=== PATIENT | female | born 1955 | race Caucasian/White ===

== ENCOUNTER 2018-03-26 06:18 | Day surgery (SDC) ==
[2018-03-26] MEDS: BETADINE OPTH PREP OP PRN ×2 (06:30→07:17)
[2018-03-26] MEDS: TETRACAINE 0.5% UNIT-DOSE OP PRN ×2 (06:30→07:17)
[2018-03-26] MEDS: CYCLOGYL 2% OPTH OP PRN ×3 (06:31→06:41)
[2018-03-26 07:29] VITALS: TEMP 96.2
[2018-03-26] MEDS ORDERED: ZOFRAN 4 MG/2 ML IVP ONE (07:30)
[2018-03-26] MEDS ORDERED: LIDOCAINE 1% 20 ML MDV ID STA (07:30)
[2018-03-26] MEDS ORDERED: BSS WITH EPINEPHRINE OP ONE (07:30)
[2018-03-26] MEDS ORDERED: BRIMONIDINE TARTRATE 0.2% OPTH SOL OP PRN (07:30)
[2018-03-26] MEDS ORDERED: AK-DILATE 10% OPTH SOL OP PRN (07:30)
[2018-03-26] MEDS ORDERED: LIDOCAINE 1%/PHENYLEPHRINE 1.5% BSS (SURGERY) INTRAOCULA ONE (07:30)
[2018-03-26] MEDS ORDERED: DEX-MOXI-KETOR OPTH INJ 1/0.5/0.4 MG/ML IO ONE (07:30)
[2018-03-26] MEDS ORDERED: VERSED ONE (07:36)
[2018-03-26] MEDS ORDERED: DIPRIVAN 20 ML VIAL IVP ONE (07:36)
[2018-03-26] MEDS ORDERED: ZOFRAN 4 MG/2 ML ONE (07:36)
[2018-03-26 15:13] VITALS: BP 121/67
== END 2018-03-26 09:00 | disposition home or self-care (01) ==
LOC: SURG 06:18
PROVIDERS: ATTEND Ophthalmology
DX: H25.11 Age-related nuclear cataract, right eye (principal)

== ENCOUNTER 2018-04-09 06:19 | Day surgery (SDC) ==
[2018-04-09] MEDS: BETADINE OPTH PREP OP PRN ×2 (06:30→07:30)
[2018-04-09] MEDS: TETRACAINE 0.5% UNIT-DOSE OP PRN ×3 (06:30→07:47)
[2018-04-09] MEDS: CYCLOGYL 2% OPTH OP PRN ×3 (06:31→06:41)
[2018-04-09] MEDS ORDERED: LIDOCAINE 1% 20 ML MDV ID STA (06:42)
[2018-04-09] MEDS ORDERED: BSS WITH EPINEPHRINE OP ONE (06:42)
[2018-04-09] MEDS ORDERED: BRIMONIDINE TARTRATE 0.2% OPTH SOL OP PRN (06:42)
[2018-04-09] MEDS ORDERED: DEX-MOXI-KETOR OPTH INJ 1/0.5/0.4 MG/ML IO ONE (06:42)
[2018-04-09] MEDS ORDERED: ZOFRAN 4 MG/2 ML IVP ONE (06:42)
[2018-04-09 06:46] VITALS: TEMP 97.5
[2018-04-09] MEDS ORDERED: ZOFRAN 4 MG/2 ML ONE (07:42)
[2018-04-09] MEDS ORDERED: DIPRIVAN 20 ML VIAL IVP ONE (07:42)
[2018-04-09] MEDS ORDERED: VERSED ONE (07:42)
[2018-04-09] MEDS: LIDOCAINE 1%/PHENYLEPHRINE 1.5% BSS (SURGERY) INTRAOCULA ONE ×2 (07:47→07:48)
[2018-04-09 16:09] VITALS: BP 128/56
== END 2018-04-09 08:35 | disposition home or self-care (01) ==
LOC: SURG 06:19
PROVIDERS: ATTEND Ophthalmology
DX: H25.12 Age-related nuclear cataract, left eye (principal)

== ENCOUNTER 2018-08-16 10:00 | Outpatient (RCR) ==
--- NOTE | 2018-08-01 13:42 | RS.OPPTEV2 ---
Date of Note: 07/31/18 Visit #: 1 Number of visits approved by Insurance: NA Date of Evaluation: 07/31/18 Payer Source: Insurance Surgery Performed?: No Treatment Diagnosis: Low back pain History of Condition/Mechanism of Injury:: Risa reports low back pain that started approximately March of 2018. States she has had no injury that she is aware of. Pain has progressively gotten worse. Prior Level of Function.....Patient was independent with: ADL's, Self Care, Work /Vocation, Caregiving, Ambulation/Mobility, Community Integration/Access Functional Limitations: Sleep, Self Care, ADL's, Reaching, Pushing, Pulling, Lifting, Carrying, Sitting, Standing, Bending, Squatting, Ambulation, Community Access/Integration Current Subjective/complaints:: Risa reports progressive low back pain. States the pain is across the low back at the waist line. Reports she has recently noticed that she is favoring her left side when walking. States her sleep has been disturbed lately, due to back pain. She reports her pain level depends on her activity. States getting out of her car is difficult. Reports increased difficulty with ADL's following prolonged standing or activities. States she has not been able to lift anything heavy since she had surgery on her arms, do to her technician automatic strength being weak. Medical History Surgical History Comments:: right foot surgery, bilateral ulnar nerve relocation surgery Smoking Status: Current some day smoker Diagnostic Testing/Imaging:: MRI of the lumbar spine without contrast on 2018: L3-4: small disc bulge and small right sided annular tear. Minimal neural foraminal stenosis. No spinal canal stenosis. L4-5 Mild facet hypertrophy and small disc bulge. Mild to moderate left and moderate right neural foraminal stenosis. L5-S1 Facet hypertrophy and small disc bulge. Moderate neural foraminal stenosis, bilaterally. 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 Hx Home Medications: Lyrica, Spironolactone, Just began an anti-inflammatory Patient's Goals: Her goal is to get relief of low back pain. Pain Assessment - Pain Description Pain Location: low back Pain Description: Sharp, Aching Current Pain Intensity: 3/10 Worst Pain Intensity: 9/10 Functional Outcome Measure Oswestry LBP: 52 - G Codes & Severity Modifier G Codes & Modifier: NA Source of G Code score: NA Observation - Observation Posture: Forward Head, Rounded Shoulders, Decreased Lumbar Lordosis Gait - Gait Pattern Gait Comments: Patient ambulates without an assistive device and no loss of balance. She demonstrates decreased stance on the right LE, with slight forward flexion at the hips/lumbar region. - ROM Lumbar Flexion: Hand reach to patellae Sidebending to Left: Reach to Mid-thigh Sidebending to Right: Reach to Mid-thigh Comments: Lumbar spine demonstrates hypomobility with lumbar flexion. Sidebend to the left causes increased discomfort on the right low back. - Strength Trunk Lateral Flexion: 4- Good- Trunk Rotation: 4- Good- Comments: Right hip flexion 4+/5, all else 4/5. Left hip flexion 4/5, IR and ER 4-/5. Bilateral quads and HS 4+/5. ankles 5/5. - Special Tests SLR Test: Negative Left, Negative Right Seated Dural Stretch Test: Negative Left, Negative Right SI Joint Compression: Negative Palpation Comments:: Patient reports tenderness with Central PA's to the lower lumbar spine at L4-Sacrum. Additional Comments: Additional Comments: SLR in supine: right 45-50 degrees, left 35 degrees. Interventions - Exercise/Activities/Manual Therapy Exercises/Activities: Patient instructed in HS stretch for home. Reviewed patient's MRI and used the spine model to explain which levels are involved. Discussed body mechanics and recommended she avoid lifting and twisting at the low back. Recommended she get a small step stool to use with standing activities to reduce stress on the low back. Total minutes of Exercise: 22 mins Manual Therapy: NA HOME EXERCISE PROGRAM: HS stretch - Charges Timed Code Treatment Minutes: 22 mins Total Treatment Time: 75 mins Procedures billed for this date of service:: EVAL Medium, Ex EVALUATION COMPLEXITY LEVEL EVALUATION COMPLEXITY LEVEL: HISTORY: Medium (Arthritis, 3 C sections, Hysterectomy), EXAM OF BODY SYSTEMS: Medium (ROM, strength, pain, gait), CLINICAL PRESENTATION: Medium (75 mins ), CLINICAL DECISION MAKING: Medium Assessment Assessment: Mrs. Mayer presents to therapy with a diagnosis of Low back pain. Her MRI reveals foraminal stenosis at L3-S1. She demonstrates hypomobility in the lumbar spine and an imbalance of HS length in the LE's. She also exhibits potential for strengthening in the trunk and hips. She exhibits good potential to benefit from stretching to balance HS flexibility and improve mobility of the lumbar spine. She will also benefit from hip and trunk/core strengthening to reduce stress on the low back and improve her tolerance for activity. Patient Education: Education of diagnosis, Body/Joint mechanics, Home Exercise Program, Activity Modification, Education of Plan of Care Rehab Potential: Good Short Term Goals Goal #1: Pt independent and compliant with HEP. Goal to be met by: 08/15/18 Goal #2: Left SLR to 45 degrees. Goal to be met by: 08/15/18 Goal #3: Trunk strength 4/5. Goal to be met by: 08/15/18 Custodial Goals Goal #1: Pt knows HEP and to continue ex's to maintain functional level at D/C. Goal to be met by: 09/15/18 Goal #2: Score on Oswestry improved to 30. Goal to be met by: 09/15/18 Goal #3: Pt to sleep without interruption from low back pain. Goal to be met by: 09/15/18 Goal #4: Pt able to perform all selfcare and ADL's w/ minimal LBP. Goal to be met by: 09/15/18 Plan - Treatment to be Provided Procedures: Therapeutic Exercises, Therapeutic Activity, Manual Therapy, Patient Education Modalities: Electrical Stimulation, Ultrasound/Phonophoresis, Cryotherapy, Hot Packs - Treatment Plan Frequency: 2 X week Duration: 6 weeks Dates of Custodial Goals: 09/15/18 Expiration date of current Insurance Approval:: NA - Treatment Code (1) Low back pain Code(s): M54.5 - LOW BACK PAIN Qualifiers: Chronicity: unspecified Back pain laterality: unspecified Sciatica presence: unspecified whether sciatica present Qualified Code(s): M54.5 - Low back pain
--- NOTE | 2018-08-02 13:41 | RS.OPPTDN ---
Subjective Date of Note: 08/02/18 Visit #: 2 Number of visits approved by Insurance: NA Date of Evaluation: 07/31/18 Payer Source: Insurance Treatment Diagnosis: Low back pain Current Subjective/complaints:: Patient reports she is performing HS stretch at home as instructed. Interventions - Exercise/Activities/Manual Therapy Exercises/Activities: Patient received stretching to bilateral LE into SKTC, Piriformis, and HS stretch. Also stretched into bilateral trunk rotation. Instructed patient in using a towel or sheet behind the knee to length her reach , with the HS stretch. Also instructed in isometric hip flexion, to add to HEP. She demonstrated for me that she is sitting and crossing one leg over the other and extending her spine. She states this seems to help. She was advised that it is fine to do and she could also replicate that position, but pull the crossed leg towards her chest in supine to stretch her Piriformis. Total minutes of Exercise: X36 mins Manual Therapy: NA HOME EXERCISE PROGRAM: HS stretch and hip flexion isometrics - Charges Timed Code Treatment Minutes: 36 mins Total Treatment Time: 42 mins Procedures billed for this date of service:: EX2 Assessment: Patient tolerates stretch to low back and LE's without reports of increased pain. She will benefit from stretching and trunk strengthening to get relief of back pain. Patient Education: Education of diagnosis, Body/Joint mechanics, Home Exercise Program Patient demonstrates compliance with HEP?: Yes Short Term Goals Goal #1: Pt independent and compliant with HEP. Goal to be met by: 08/15/18 Progress towards Goal:: Progressing Goal #2: Left SLR to 45 degrees. Goal to be met by: 08/15/18 Goal #3: Trunk strength 4/5. Goal to be met by: 08/15/18 Cnc Lathe Machinist Goals Goal #1: Pt knows HEP and to continue ex's to maintain functional level at D/C. Goal to be met by: 09/15/18 Goal #2: Score on Oswestry improved to 30. Goal to be met by: 09/15/18 Goal #3: Pt to sleep without interruption from low back pain. Goal to be met by: 09/15/18 Goal #4: Pt able to perform all selfcare and ADL's w/ minimal LBP. Goal to be met by: 09/15/18 Plan Dates of Mcfp Goals: 09/15/18 Expiration date of current Insurance Approval:: NA PLAN: Progrees stretching and stability exercises.
--- NOTE | 2018-08-06 12:09 | RS.CXNS ---
Date of scheduled appointment: 08/06/18 Type: No Show
--- NOTE | 2018-08-09 12:03 | RS.OPPTDN ---
Subjective Date of Note: 08/09/18 Visit #: 3 Number of visits approved by Insurance: NA Date of Evaluation: 07/31/18 Payer Source: Insurance Treatment Diagnosis: Low back pain Current Subjective/complaints:: Reports she is performing her stretches consistently at home. States her even does them with her. States she feels like the stretches make her more flexible and less anxious about her movement. Interventions - Exercise/Activities/Manual Therapy Exercises/Activities: Patient received stretching to bilateral HS, piriformis, SKTC, and lower trunk rotation. Performed isometric hip flexion, resisted hip abduction with red theraband, isometric trunk rotation, and SLR's. Patient given red theraband for home. Total minutes of Exercise: X 35 mins Manual Therapy: NA HOME EXERCISE PROGRAM: HS stretch and hip flexion isometrics - Objective Findings Observations,measurements,etc.: SLR bilateral to 50-55 degrees. - Charges Timed Code Treatment Minutes: 35 mins Total Treatment Time: 58 mins Procedures billed for this date of service:: EX2 Assessment: Patient reports being consistent with HEP. She demonstrates increased flexibility today with stretching, especially HS. She demonstrates potential to benefit from progression of strengthening exercises. Patient Education: Education of diagnosis, Body/Joint mechanics, Home Safety, Activity Modification Patient demonstrates compliance with HEP?: Yes Short Term Goals Goal #1: Pt independent and compliant with HEP. Goal to be met by: 08/15/18 Progress towards Goal:: Progressing Goal #2: Left SLR to 45 degrees. Goal to be met by: 08/15/18 Progress towards Goal:: Met Goal #3: Trunk strength 4/5. Goal to be met by: 08/15/18 Progress towards Goal:: Progressing Fdc Goals Goal #1: Pt knows HEP and to continue ex's to maintain functional level at D/C. Goal to be met by: 09/15/18 Progress towards goal: Progressing Goal #2: Score on Oswestry improved to 30. Goal to be met by: 09/15/18 Goal #3: Pt to sleep without interruption from low back pain. Goal to be met by: 09/15/18 Goal #4: Pt able to perform all selfcare and ADL's w/ minimal LBP. Goal to be met by: 09/15/18 Plan Dates of Fdc Goals: 09/15/18 Expiration date of current Insurance Approval:: NA PLAN: progress core/trunk stability exercises.
--- NOTE | 2018-08-13 09:27 | RS.CXNS ---
Date of scheduled appointment: 08/13/18 Type: Cancel Reason for Cancel/NS: Patient called to cancel appointment today due to being sick.
--- NOTE | 2018-08-16 15:21 | RS.OPPTDN ---
Subjective Date of Note: 08/16/18 Visit #: 4 Number of visits approved by Insurance: NA Date of Evaluation: 07/31/18 Payer Source: Insurance Treatment Diagnosis: Low back pain Current Subjective/complaints:: Patient states she is performing her exercises at home. She is having her perform them with her. She thinks core strengthening with help her the most. She motivated to increase her activity level. Interventions - Exercise/Activities/Manual Therapy Exercises/Activities: Patient received stretching to bilateral HS, piriformis, SKTC, and lower trunk rotation. Performed isometric hip flexion, resisted hip abduction with red theraband, isometric trunk rotation, and SLR's. Performed bug for trunk stability X 10 each side, X 10 hip adduction isometrics. Given green theraband to progress resistance for resisted hip abduction. Total minutes of Exercise: 42 mins Manual Therapy: NA HOME EXERCISE PROGRAM: HS stretch and hip flexion isometrics, resisted hip abduction, bug, and resisted scapular retraction with red band. - Charges Timed Code Treatment Minutes: 42 mins Total Treatment Time: 58 mins Procedures billed for this date of service:: EX3 Assessment: Risa presents to be compliant with HEP. She is motivated to gain more core strength and increase her activity level. She demonstrates the need for progressed strengthening. Patient Education: Education of diagnosis, Body/Joint mechanics, Home Exercise Program, Home Safety, Activity Modification Patient demonstrates compliance with HEP?: Yes Short Term Goals Goal #1: Pt independent and compliant with HEP. Goal to be met by: 08/15/18 Progress towards Goal:: Progressing Goal #2: Left SLR to 45 degrees. Goal to be met by: 08/15/18 Progress towards Goal:: Met Goal #3: Trunk strength 4/5. Goal to be met by: 08/15/18 Progress towards Goal:: Progressing Realtime Court Reporter Goals Goal #1: Pt knows HEP and to continue ex's to maintain functional level at D/C. Goal to be met by: 09/15/18 Progress towards goal: Progressing Goal #2: Score on Oswestry improved to 30. Goal to be met by: 09/15/18 Goal #3: Pt to sleep without interruption from low back pain. Goal to be met by: 09/15/18 Goal #4: Pt able to perform all selfcare and ADL's w/ minimal LBP. Goal to be met by: 09/15/18 Plan Dates of Realtime Court Reporter Goals: 09/15/18 Expiration date of current Insurance Approval:: 09/15/18 PLAN: Progress trunk and hip strengthening exercises.
== END 2018-08-22 23:59 ==
DX: M54.5 Low back pain (principal)